=== PATIENT | female | born 1940 | race Caucasian/White ===

== ENCOUNTER → 2016-12-01 | Outpatient (CLI) | payer MEDICARE ==
[~2016-12-01] MED LIST: DETROL LA DPS4 MG PO; IRON325 M1 PO; LYRICA150 MG PO; PRILOSEC DPS20 MG PO; TOUJEO SOL300 UNIT/1 SQ; VASOTEC DPS10 MG PO; XARELTO20 MG PO; ZOFRAN4 MG PO
== END | disposition home or self-care (01) ==
LOC: RAD.S 09:27
DX: Z12.31 Encounter for screening mammogram for malignant neoplasm of breast (principal)